=== PATIENT | male | born 1985 | race Caucasian/White ===

== ENCOUNTER 2021-03-08 22:07 | Emergency (ER) | payer OTHER ==
[2021-03-08 23:00] LABS: BASOPHIL 0.2 % (0-2); EOSINOPHIL 0.4 % (0-5); HCT 41.8 % (42.0-52.0); HGB 13.7 g/dl (13.2-18.0); LYMPHOCYTE 27.2 % (15-48); MCH 28.5 pg (25.0-31.0); MCHC 32.8 g/dL (32.0-36.0); MCV 86.9 fL (78.0-100.0); MONOCYTE 4.8 % (0-12); MPV 9.7 fL (6.0-9.5); NEUTROPHIL 66.7 % (41-80); NRBC 0; PLT 172 K/uL (150-400); RBC 4.81 M/uL (4.70-6.00); RDW 13.9 % (11.5-14.0); WBC 5.7 K/uL (4.0-10.5)
[2021-03-08 23:16] LABS: ALBUMIN 3.5 g/dL (3.4-5.0); BILIRUBIN - TOTAL 0.5 mg/dL (0.2-1.0); BUN/CREAT RATIO (CALC) 10.9 RATIO; CREATININE 1.1 mg/dL (0.67-1.17); GLOBULIN (CALCULATION) 3.8 g/dL; POTASSIUM 4.2 mmol/L (3.5-5.1); TOTAL PROTEIN 7.3 g/dL (6.4-8.2)
[2021-03-08 23:21] LABS: INFLUENZA A NAA NEGATIVE (NEGATIVE)
[2021-03-08 23:24] LABS: LACTIC ACID 0.9 mmol/L (0.4-1.9)
[2021-03-08 23:27] LABS: CORONAVIRUS 2019 SARS-COV-2 POSITIVE (NEGATIVE)
[2021-03-09] MEDS ORDERED: PULMICORT FLE180 MCG INH (01:43)
[2021-03-09] MEDS ORDERED: ZPAK PO (01:43)
[2021-03-09] MEDS ORDERED: HYDROCODONE-CH473 ML PO (01:43)
[2021-03-09] MEDS ORDERED: VENTOLIN HFA IN18 GM INH (01:43)
== END 2021-03-09 02:05 | disposition home or self-care (01) ==
LOC: FER 22:07
PROVIDERS: Nurse Practitioner Family
DX: U07.1 COVID-19 (principal); J12.82 Pneumonia due to coronavirus disease 2019; I10 Essential (primary) hypertension; Z88.8 Allergy status to other drugs, medicaments and biological substances
CPT/HCPCS: 36415; 36600; 71046; 80053; 82803; 83605; 85025; 85379; 87040; 94664; U0002